=== PATIENT | male | born 1985 | race Caucasian/White ===

== ENCOUNTER 2022-10-19 15:32 | Emergency (ER) | payer SELFPAY ==
[2022-10-19] VITALS (8 sets, daily range): BP systolic 137–154; BP diastolic 72–102
[2022-10-19] MEDS ORDERED: LORTAB 5/3255 MG PO ×2 (17:58→17:59)
[2022-10-19] MEDS ORDERED: NAPROXEN500 MG PO ×2 (17:58→17:59)
== END 2022-10-19 18:31 | disposition left against medical advice (07) | DRG 563 ==
LOC: ED 15:32
PROC: 2W3SX1Z Immobilization of Right Foot using Splint (ICD-10-PCS; principal; 2022-10-19)
DX: S82.842A Displaced bimalleolar fracture of left lower leg, initial encounter for closed fracture (principal); W19.XXXA Unspecified fall, initial encounter; Z53.21 Procedure and treatment not carried out due to patient leaving prior to being seen by health care provider